=== PATIENT | female | born 1970 | race Asian ===

== ENCOUNTER 2018-06-14 21:12 | Emergency (ER) | payer OTHER ==
[~2018-06-14] VITALS: Ht 160 cm; Wt 64.9 kg
[2018-06-14 21:16] VITALS: Ht 160 cm; Wt 64.9 kg
[2018-06-14 22:33] VITALS: BP 130/97
== END 2018-06-14 22:33 | disposition home or self-care (01) ==
LOC: ED 21:12
DX: N39.0 Urinary tract infection, site not specified (principal); E78.00 Pure hypercholesterolemia, unspecified